=== PATIENT | female | born 2000 | race Caucasian/White ===

== ENCOUNTER 2021-01-04 14:17 | Inpatient (IN) | payer OTHER, SELFPAY ==
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
--- NOTE | 2021-01-04 14:15 | DI.RAD_ITS ---
Exam(s) XR KNEE RT 2V AP,LAT EXAM: XR KNEE RT 2V AP,LAT CLINICAL HISTORY: Trauma. TECHNIQUE: 2D digital imaging was performed. COMPARISON: No exams were available for comparison FINDINGS: Two portable AP and cross-table lateral views of the right knee reveal no evidence of fracture or obv ious joint effusion. Bone density is normal. No incidental osseous lesions IMPRESSION: DATA REPOSITORY: RADIATION DOSE DELIVERED:
[2021-01-04 14:20] VITALS: BP 135/66; PULSE 98; RESP 20; TEMP 37; O2SAT 100
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
[2021-01-04] MEDS: Normal Saline 1,000 ML 150 ML IV (14:52)
[2021-01-04] MEDS: Ondansetron 4 MG/2 ML VIAL IVP ×2 (14:54→22:46)
[2021-01-04] MEDS: MORPHine 10 MG/ML VIAL 4 MG IVP ×2 (14:55→17:31)
[2021-01-04 14:59] LABS: Abs Immature Grans 0.09 10^3/uL (0.0-0.06); Absolute Eosinophil Count 0.11 10^3/uL (0.0-0.7); Absolute Lymphocyte Count 3.07 10^3/uL (1.2-3.4); Absolute Monocyte Count 0.82 10^3/uL (0.1-0.8); Basophils % 0.4; Eosinophils % 0.7; HCT 42.3 % (36.0-46.0); HGB 14.1 g/dL (11.2-15.7); Immature Grans % 0.6; Lymphocytes % 19.5; MCHC 33.3 % (32.0-36.0); MCV 83.9 fL (80-95); Monocytes % 5.2; Neutrophils % 73.6; Nucleated RBC 0 %; Platelet Count 357 10^3/uL (130-400); RBC 5.04 10^6/uL (3.93-5.22); RDW-SD 36.5 fL; WBC 15.76 10^3/uL (4.4-10.8)
[2021-01-04] MEDS: Lidocaine/Epinephri/Tetracaine Topical Gel 3 ML TP (14:59)
[2021-01-04 15:02] LABS: Absolute Basophil Count 0.06 10^3/uL (0.0-0.2)
[2021-01-04 15:05] LABS: Lipase 73 U/L (73-393); Magnesium 1.7 mg/dL (1.8-2.4)
[2021-01-04 15:11] LABS: ALT 31 U/L (14-59); AST 15 U/L (15-37); Albumin 4.2 g/dL (3.4-5.0); Alkaline Phosphatase 85 U/L (46-116); Anion Gap 9.8 mmol/L (3-11); BUN 13 mg/dL (7-18); Bilirubin, Total 0.6 mg/dL (0.2-1.0); CO2 28.2 mmol/L (21.0-32.0); Calcium 9.1 mg/dL (8.5-10.1); Chloride 105 mmol/L (98-107); Glucose 177 mg/dL (74-106); Potassium 3.2 mmol/L (3.5-5.1); Sodium 143 mmol/L (136-145); Total Protein 7.8 g/dL (6.4-8.2); Troponin I < 0.05 ng/mL (<0.06)
[2021-01-04 15:15] LABS: HCG Qual (Serum) Negative
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
[2021-01-04] MEDS: Normal Saline - Diluent 50 ML VIAL IV (15:21)
[2021-01-04] MEDS: Omnipaque 350 MG/ML 100 ML BTL IJ (15:21)
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
[2021-01-04] MEDS: LORazepam 2 MG/ML VIAL 0.5 MG IVP (16:31)
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
[2021-01-04] MEDS: Ketorolac 15 MG/ML VIAL IVP ×2 (17:40→23:42)
[2021-01-04] MEDS: Acetaminophen 500 MG TAB 1000 MG PO ×2 (17:41→23:42)
[2021-01-04 17:46] LABS: Bilirubin Negative (Negative); Blood Negative (Negative); Clarity Sl Cloudy (Clear); Glucose Negative (Negative); Ketones Negative (Negative); Leukocyte Esterase Negative (Negative); Nitrite Negative (Negative); Urobilinogen 0.2 EU/dL (Up TO 0.2)
[2021-01-04 18:03] LABS: Source Nasal/Nares
[2021-01-04 18:30] VITALS: BP 126/73; PULSE 99; RESP 18; TEMP 37.1; O2SAT 99
[2021-01-04] MEDS: MORPHine 2 MG/ML SYR IVP ×2 (18:43→20:42)
[2021-01-04] MEDS: DEXTROSE 5%-0.45% SALINE 1,000 ML 100 ML IV (18:43)
[2021-01-04 18:53] LABS: COVID-19 PCR Negative (Negative)
[2021-01-04] MEDS: oxyCODONE 5 MG TAB PO (19:33)
[2021-01-04 19:45] VITALS: BP 137/82; PULSE 87; RESP 18; TEMP 37.2; O2SAT 100
[2021-01-04] MEDS: Normal Saline Flush 10 ML SYR IVP ×3 (20:42→23:43)
[2021-01-04] MEDS: Enoxaparin 40 MG/0.4 ML SYR SC (20:43)
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
[2021-01-04 21:03] VITALS: BP 137/82; PULSE 87; RESP 19; TEMP 37.2; O2SAT 100
[2021-01-04] MEDS: LORazepam 0.5 MG TAB PO (22:21)
[2021-01-04 22:45] VITALS: BP 118/77; PULSE 85; RESP 18; TEMP 36.5; O2SAT 98
[2021-01-05] VITALS (17 sets, daily range): BP systolic 94–138; BP diastolic 34–91; PULSE 59–86; RESP 12–22; TEMP 36.2–37.1; TEMPC 36.6; O2SAT 96–100; BMI 33.9
[2021-01-05] MEDS: MORPHine 2 MG/ML SYR IVP ×3 (00:58→04:36)
[2021-01-05] MEDS: Normal Saline Flush 10 ML SYR IVP ×5 (00:58→22:59)
[2021-01-05] MEDS: DEXTROSE 5%-0.45% SALINE 1,000 ML 100 ML IV ×3 (04:37→22:59)
[2021-01-05] MEDS: Ketorolac 15 MG/ML VIAL IVP ×3 (05:48→22:58)
[2021-01-05] MEDS: Acetaminophen 500 MG TAB 1000 MG PO ×2 (05:48→11:38)
[2021-01-05 07:05] LABS: Abs Immature Grans 0.02 10^3/uL (0.0-0.06); Absolute Basophil Count 0.04 10^3/uL (0.0-0.2); Absolute Eosinophil Count 0.05 10^3/uL (0.0-0.7); Absolute Lymphocyte Count 2.33 10^3/uL (1.2-3.4); Absolute Monocyte Count 0.77 10^3/uL (0.1-0.8); Basophils % 0.4; Eosinophils % 0.5; HCT 36.5 % (36.0-46.0); HGB 11.8 g/dL (11.2-15.7); Immature Grans % 0.2; Lymphocytes % 23.1; MCH 27.5 pg (27.0-33.0); MCHC 32.3 % (32.0-36.0); MCV 85.1 fL (80-95); MPV 10.7 fL (8.0-11.0); Monocytes % 7.6; Neutrophils % 68.2; Nucleated RBC 0 %; Platelet Count 258 10^3/uL (130-400); RBC 4.29 10^6/uL (3.93-5.22); RDW 12.1 % (11.7-14.6); RDW-SD 37.2 fL; WBC 10.07 10^3/uL (4.4-10.8)
[2021-01-05 07:12] LABS: Absolute Neutrophil Count 6.87 10^3/uL (1.2-6.7)
[2021-01-05 07:16] LABS: Anion Gap 7.3 mmol/L (3-11); BUN 9 mg/dL (7-18); CO2 28.7 mmol/L (21.0-32.0); CREATININE 0.8 mg/dL (0.55-1.02); Calcium 8.7 mg/dL (8.5-10.1); Chloride 105 mmol/L (98-107); Glucose 114 mg/dL (74-106); Magnesium 1.6 mg/dL (1.8-2.4); Potassium 3.7 mmol/L (3.5-5.1); Sodium 141 mmol/L (136-145)
[2021-01-05] MEDS: Bacitracin 1 PACKET TP (07:42)
[2021-01-05] MEDS: MORPHine 2 MG/ML SYR 4 MG IVP ×3 (07:42→12:35)
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
[2021-01-05] MEDS: oxyCODONE 5 MG TAB PO (09:50)
[2021-01-05] MEDS: MAGNESIUM SULFATE 1 GM/100 ML BAG IVPB (12:01)
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
[2021-01-05] MEDS: Ondansetron 4 MG/2 ML VIAL IVP ×2 (16:27→20:37)
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
[2021-01-05] MEDS: Lactated Ringers 1,000 ML 50 ML IV (17:39)
[2021-01-05] MEDS: Bupivacaine 0.25% Pres-Free 30 ML VIAL (18:12)
[2021-01-05] MEDS: Ketorolac 30 MG/ML VIAL (18:12)
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
--- NOTE | 2021-01-05 21:01 | W.ANESPOSTOP ---
Postoperative Evaluation Date, Time and Location Date Performed: 01/05/21 Time Performed: 21:01 Patient Location: PACU Vital Signs Most Recent Imported Vital Signs: Most Recent Vital Signs Temp Pulse Resp BP Pulse Ox 36.4 C L 65 13 97/41 L 97 01/05/21 20:49 01/05/21 20:49 01/05/21 20:49 01/05/21 20:49 01/05/21 20:49 Most Recent Manually Entered Vital Signs: Adult Blood Pressure: 127/73 Heart Rate: 62 Respirations: 12 Oxygen Saturation (%): 100 Temperature (C): 36.6 C Pain Score (0-10 Scale): 0 Pain Score Most Recent Pain Score: Most Recent Pain Score Pain Level [Right Lower 10 01/05/21 05:57 Lateral Leg] Pain Level [Left Tib/Fib(lower 10 01/04/21 14:26 leg)] Pain Level 0 01/05/21 20:49 Assessment Mental Status: Awake (Alert & Oriented to Patient Baseline) Airway and Respiratory Function: Patent airway with normal (patient baseline) respiratory exam Cardiovascular Function: Hemodynamically Stable Hydration Status: Adequately Hydrated Nausea & Vomiting: No Nausea or Vomiting Pain: Pt. Denies Any Pain Peripheral Nerve Block: Patient did not receive a nerve block
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
[2021-01-06] MEDS: Acetaminophen 500 MG TAB 1000 MG PO ×3 (00:11→13:23)
[2021-01-06] MEDS: ceFAZolin 1 GM/50 ML BAG IVPB ×3 (00:11→15:01)
[2021-01-06] MEDS: Ondansetron 4 MG/2 ML VIAL IVP (00:16)
[2021-01-06] MEDS: HYDROmorphone 2 MG/ML VIAL 0.5 MG IVP (00:16)
[2021-01-06] MEDS: Normal Saline Flush 10 ML SYR IVP ×4 (00:19→15:03)
[2021-01-06 00:27] VITALS: BP 115/74; PULSE 72; RESP 19; TEMP 36.9; O2SAT 99
[2021-01-06] MEDS: oxyCODONE 5 MG TAB PO ×3 (04:13→14:03)
[2021-01-06] MEDS: Ketorolac 15 MG/ML VIAL IVP ×2 (04:14→10:22)
[2021-01-06 04:21] VITALS: BP 111/63; PULSE 74; RESP 18; TEMP 37; O2SAT 98
--- NOTE | 2021-01-06 07:17 | PGE_ITS ---
Date of Service Date of service: 01/06/21 Time of Service: 07:17 Assessment and Plan Assessment and plan (1) Tibia/fibula fracture: Status: Acute Assessment and plan: Petey is a 20-year-old status post intervention nail fixation of a right tib-fib fracture. She is doing well. Her pain has improved. At this point, we will work with physical therapy to mobilize. I expect that she could be go home this afternoon as long as she is able to pass crutch mobilization expectations. Her pain has been managed on oral medications which we will continue on discharge. She will receive Lovenox while here in the hospital for her blood clot prevention but then transition to aspirin. Touchdown weightbearing right lower extremity with use of crutches or a walker. Qualifiers: Encounter type: initial encounter Fracture type: closed Laterality: right Qualified Code(s): S82.201A - Unspecified fracture of shaft of right tibia, initial encounter for closed fracture; S82.401A - Unspecified fracture of shaft of right fibula, initial encounter for closed fracture Subjective Subjective Interval history since last seen: Petey reports be doing better. She has had pain overnight but has been treated with oral medications. She has been able to move her own leg without significant increase in pain. She does find that rajan ons about her ankle and her foot seem to cause more pain than before but otherwise no acute concerns. She has been voiding spontaneously on her own. Exam Narrative Exam Narrative: Sitting up in the hospital bed. No acute distress. Alert on x3. Evaluation of her right lower extremity shows a splint in place. No significant drainage or discharge. She does have some swelling about the foot but is able to wiggle her toes minimally. No significant pain with passive range of motion. Sensation intact light touch of the deep and superficial peroneal nerve and tibial nerve. Objective Last Vital Signs Temp 37 C 01/06/21 04:21 Pulse 74 01/06/21 04:21 Resp 18 01/06/21 04:21 BP 111/63 01/06/21 04:21 Pulse Ox 98 01/06/21 04:21 Laboratory Results - last 24 hr 01/05/21 06:42 Sodium 141 Potassium 3.7 Chloride 105 Carbon Dioxide 28.7 Anion Gap 7.3 BUN 9 Creatinine 0.8 Estimated GFR/1.73 m2 >= 60.00 Glucose 114 H Calcium 8.7 Magnesium 1.6 L
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
[2021-01-06 07:23] LABS: Absolute Monocyte Count 0.56 10^3/uL (0.1-0.8); Basophils % 0.1; HCT 36.3 % (36.0-46.0); HGB 11.9 g/dL (11.2-15.7); Immature Grans % 0.7; Lymphocytes % 5.3; MCH 27.4 pg (27.0-33.0); MCHC 32.8 % (32.0-36.0); MCV 83.4 fL (80-95); MPV 11.2 fL (8.0-11.0); Monocytes % 3.7; Neutrophils % 90.2; Nucleated RBC 0 %; Platelet Count 268 10^3/uL (130-400); RBC 4.35 10^6/uL (3.93-5.22); RDW-SD 36.5 fL; WBC 15.07 10^3/uL (4.4-10.8)
[2021-01-06 07:25] LABS: Absolute Basophil Count 0.02 10^3/uL (0.0-0.2); Absolute Neutrophil Count 13.59 10^3/uL (1.2-6.7)
[2021-01-06] MEDS: Bacitracin 1 PACKET TP (07:52)
[2021-01-06] MEDS: Enoxaparin 40 MG/0.4 ML SYR SC (07:53)
[2021-01-06 08:50] VITALS: BP 123/77; PULSE 68; RESP 18; TEMP 36.3; O2SAT 100
[2021-01-06] MEDS: Docusate Sodium 100 MG CAP PO (08:50)
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
--- NOTE | 2021-01-06 15:22 | NUR.NOTE ---
Nursing Note:Patient stated 10/10 pain despite 10 mg oxycodone. Patient worried about developing blood clots and the pain in her ankle. Charge nurse made aware. Pulses present. Foot warm and patient is able to move all toes. Surgical PA made aware and came up to bedside. PA un-wrapped and rewrapped leg. No changes and is cleared to be discharged.
[2021-01-06 16:08] VITALS: BP 119/71; PULSE 71; RESP 16; TEMP 37.1; O2SAT 98
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
== END 2021-01-06 17:24 | disposition home or self-care (01) | DRG 494 ==
LOC: ER 17:03 → MS 01-05 07:20
PROVIDERS: Admitting Provider Surgery; Emergency Provider Registered Nurse Emergency; Visit Provider Student in an Organized Health Care Education/Training Program
PROC: 0QSG06Z Reposition Right Tibia with Intramedullary Internal Fixation Device, Open Approach (ICD-10-PCS; CPT 27759; principal; 2021-01-05 17:00)
DX: S82.201A Unspecified fracture of shaft of right tibia, initial encounter for closed fracture (principal); V89.2XXA Person injured in unspecified motor-vehicle accident, traffic, initial encounter; Z20.822 Contact with and (suspected) exposure to COVID-19; S01.81XA Laceration without foreign body of other part of head, initial encounter
CPT/HCPCS: 27759; 12011; 29515; 36415; 74177; 76000; 80048; 80053; 83690; 87635; 96361; 96374; 96375; 96376; 97116; 97161; 99285; J1650; 70450; 71046; 71260; 72125; 73560; 73590; 81003; 83735; 84484; 84703; 85025; J0690; J1100; J1885; J2001; J2060; J2250; J2270; J2405; J2704; J3010; J3475; J3490

== ENCOUNTER 2021-01-11 14:01 | Outpatient (REF) | payer MEDICAID, SELFPAY ==
[2021-01-11 17:17] LABS: Source Nasal/Nares
[2021-01-11 20:47] LABS: COVID-19 PCR Negative (Negative)
== END 2021-01-11 14:02 | disposition home or self-care (01) ==
LOC: LBO 14:01
PROVIDERS: PCP Family Medicine; Visit Provider Family Medicine
DX: Z20.822 Contact with and (suspected) exposure to COVID-19 (principal)
CPT/HCPCS: 87635

== ENCOUNTER 2021-01-21 14:16 | Outpatient (CLI) | payer MEDICAID, SELFPAY ==
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
== END 2021-01-21 14:17 | disposition home or self-care (01) ==
LOC: DIORS 14:16
PROVIDERS: PCP Family Medicine; Referring Provider Family Medicine; Visit Provider Student in an Organized Health Care Education/Training Program
DX: S82.201D Unspecified fracture of shaft of right tibia, subsequent encounter for closed fracture with routine healing (principal); S82.401D Unspecified fracture of shaft of right fibula, subsequent encounter for closed fracture with routine healing
CPT/HCPCS: 73590

== ENCOUNTER 2021-03-08 12:52 | Outpatient (CLI) | payer MEDICAID, SELFPAY ==
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
== END 2021-03-08 12:53 | disposition home or self-care (01) ==
LOC: DIORS 12:52
PROVIDERS: PCP Family Medicine; Referring Provider Family Medicine; Visit Provider Physician Assistant
DX: S82.291D Other fracture of shaft of right tibia, subsequent encounter for closed fracture with routine healing (principal); S82.491D Other fracture of shaft of right fibula, subsequent encounter for closed fracture with routine healing; X58.XXXA Exposure to other specified factors, initial encounter
CPT/HCPCS: 73590

== ENCOUNTER 2021-04-05 13:04 | Outpatient (CLI) | payer MEDICAID, SELFPAY ==
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
== END 2021-04-05 13:05 | disposition home or self-care (01) ==
LOC: DIORS 13:04
PROVIDERS: PCP Family Medicine; Referring Provider Family Medicine; Visit Provider Student in an Organized Health Care Education/Training Program
DX: S82.291D Other fracture of shaft of right tibia, subsequent encounter for closed fracture with routine healing (principal); S82.491D Other fracture of shaft of right fibula, subsequent encounter for closed fracture with routine healing; X58.XXXD Exposure to other specified factors, subsequent encounter
CPT/HCPCS: 73590

== ENCOUNTER 2021-05-17 11:21 | Outpatient (CLI) | payer MEDICAID, SELFPAY ==
--- NOTE | 2021-05-17 10:45 | DI.RAD_ITS ---
Exam(s) XR TIB/FIB RT EXAM: XR TIB/FIB RT INDICATION: follow up. COMPARISON: CR XR TIB/FIB RT from 04/05/2021 TECHNIQUE: 2D digital imaging was performed. FINDINGS: Intramedullary roxane is again noted through the tibia. There is been no change in fracture or hardware alignment. There has been a slight increase in fracture healing since the previous exam. No new ab normalities. DATA REPOSITORY: RADIATION DOSE DELIVERED:
== END 2021-05-17 11:22 | disposition home or self-care (01) ==
LOC: DIORS 11:21
PROVIDERS: PCP Family Medicine; Visit Provider Physician Assistant Surgical
DX: S82.291D Other fracture of shaft of right tibia, subsequent encounter for closed fracture with routine healing (principal); S82.491D Other fracture of shaft of right fibula, subsequent encounter for closed fracture with routine healing; X58.XXXD Exposure to other specified factors, subsequent encounter
CPT/HCPCS: 73590

== ENCOUNTER 2021-07-12 11:26 | Outpatient (CLI) | payer MEDICAID, SELFPAY ==
--- NOTE | 2021-07-12 10:30 | DI.RAD_ITS ---
Exam(s) XR TIB/FIB RT EXAM: XR TIB/FIB RT CLINICAL HISTORY: follow up. TECHNIQUE: 2D digital imaging was performed. Two views. COMPARISON: CR XR TIB/FIB RT from 05/17/2021 FINDINGS: BONES: There has been no change in the intramedullary roxane through the tibia. There is been no change in the alignment of the fractures of the distal 3rd of the tibia and fibula which shows some increas ed healing when compared with the previous. No acute fracture is present. No bony destructive lesion is seen. Visualized portion of knee and ankle joints are unremarkable. SOFT TISSUE: Normal. IMPRESSION: Healing fractures distal tibia and fibula. DATA REPOSITORY: RADIATION DOSE DELIVERED:
== END 2021-07-12 11:27 | disposition home or self-care (01) ==
LOC: DIORS 11:26
PROVIDERS: PCP Family Medicine; Referring Provider Family Medicine; Visit Provider Physician Assistant Surgical
DX: S82.291D Other fracture of shaft of right tibia, subsequent encounter for closed fracture with routine healing (principal); S82.491D Other fracture of shaft of right fibula, subsequent encounter for closed fracture with routine healing; X58.XXXD Exposure to other specified factors, subsequent encounter
CPT/HCPCS: 73590

== ENCOUNTER 2021-07-26 03:08 | Outpatient (CLI) | payer MEDICAID, SELFPAY ==
[2021-07-26 11:20] LABS: Source Nasal/Nares
[2021-07-26 19:41] LABS: COVID-19 PCR Negative (Negative)
== END 2021-07-26 03:09 | disposition home or self-care (01) ==
PROVIDERS: PCP Family Medicine; Visit Provider Student in an Organized Health Care Education/Training Program
DX: Z20.822 Contact with and (suspected) exposure to COVID-19 (principal); Z01.818 Encounter for other preprocedural examination
CPT/HCPCS: 87635

== ENCOUNTER 2021-07-28 09:47 | Day surgery (SDC) | payer MEDICAID, SELFPAY ==
[2021-07-28] VITALS (9 sets, daily range): BP systolic 101–137; BP diastolic 42–91; PULSE 59–73; RESP 14–27; TEMP 36.1–37; O2SAT 98–100; BMI 30.5
--- NOTE | 2021-07-28 07:54 | W.PM.DSUDISC ---
Discharge Plan Disposition Patient Disposition: HOME Condition: Good Discharge Details Reason For Visit: Painful orthopedic hardware Attending Provider: Nba Marshall Primary Care Provider: Gemini Byrd Home Meds and New Rx's Prescriptions: New hydrocodone-acetaminophen 5-325 mg tablet 1 tab PO Q6H PRN (Reason: severe pain) Qty: 4 0RF Rx Instructions: Take one tablet up to every 6 hours as needed for severe postoperative pain Continued diazepam 5 mg tablet 5 mg PO Q8H PRN PRN (Reason: muscle spasm and anxiety) Qty: 12 0RF acetaminophen 500 mg tablet 1,000 mg PO Q8H PRN (Reason: pain) Qty: 90 3RF ibuprofen 600 mg tablet 600 mg PO TID PRN (Reason: pain) Qty: 90 3RF Discharge Instructions Additional Instructions: Ankle Hardware Removal Discharge Instructions Activity: You may weight bear as tolerated. You should keep the leg elevated as much as possible. You may wiggle your toes and move your hip and knee. You may wear the fracture walking boot that you have at home but it's not necessary. However, you should utilize the crutches to take it easy for the first two weeks. Dressings: You should keep the initial dressing on for at least 3 days, although it can stay for up to 7 days. After 3 days, you may remove it and get it wet in the shower. You should keep it covered with a light gauze dressing or wrap or bandaid until follow-up. Medications: - You should take Tylenol and Ibuprofen around the clock for baseline pain. - You have been prescribed a stronger narcotic, Hydrocodone, for breakthrough pain. Follow-up: 2 weeks Referrals: Nba Marshall MD [ [facility] STAFF PHYSICIAN] - Activity:: Elevate Remove Dressings/Wound Care:: 72 hours Shower/Bathe:: 72 hours Diet:: As Tolerated Discharge Orders Discharge Orders: Discharge Order (Routine); Ordered 07/28/21 Ordered By: Jayde Pennington DS: Diagnosis Discharge Diagnosis (1) Painful orthopaedic hardware: Status: Acute
[2021-07-28] MEDS: Lactated Ringers 1,000 ML 80 ML IV (10:45)
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
--- NOTE | 2021-07-28 11:45 | DI.RAD_ITS ---
Exam(s) XR TIB/FIB RT EXAM: XR TIB/FIB RT CLINICAL HISTORY: HARDWARE RIGHT TIB/FIB TECHNIQUE: 2D and realtime digital imaging was performed. CONTRAST MATERIAL: Refer to procedure report. COMPARISON: CR XR TIB/FIB RT from 07/12/2021 FINDINGS: Fluoroscopy was provided for Dr. Marshall during the performance of a hardware removal. Please refe r to the procedure report for complete details. Ka,r=0.93 mGy IMPRESSION: RADIATION DOSE DELIVERED:
[2021-07-28] MEDS: ceFAZolin 2 GM/50 ML BAG IVPB (12:12)
--- NOTE | 2021-07-28 15:06 | W.ANESPOSTOP ---
Postoperative Evaluation Date, Time and Location Date Performed: 07/28/21 Time Performed: 14:15 Patient Location: Day Surgery Unit Vital Signs Most Recent Imported Vital Signs: Most Recent Vital Signs Temp Pulse Resp BP Pulse Ox 36.7 C 69 18 108/64 98 07/28/21 14:17 07/28/21 14:17 07/28/21 14:17 07/28/21 14:17 07/28/21 14:17 Pain Score Most Recent Pain Score: Most Recent Pain Score Pain Level 4 07/28/21 14:17 Assessment Mental Status: Awake (Alert & Oriented to Patient Baseline) Airway and Respiratory Function: Patent airway with normal (patient baseline) respiratory exam Cardiovascular Function: Hemodynamically Stable Hydration Status: Adequately Hydrated Nausea & Vomiting: No Nausea or Vomiting Pain: Pain is tolerable per patient Peripheral Nerve Block: Patient did not receive a nerve block
--- NOTE | 2021-07-28 21:35 | W.PM.OP ---
Date of service: 07/28/21 Time of Service: 12:45 Operative Note Operative Note DATE OF PROCEDURE: 07/28/21 PRE-OP DIAGNOSIS: Painful hardware - right leg PROCEDURE: Removal of deep hardware - right leg SURGEON: Nba Marshall ANESTHESIA TYPE: General:No Airway Refer to Anesthesia Record ESTIMATED BLOOD LOSS: 5 TOURNIQUET TIME: 0 Indications: Petey is a 21-year-old who suffered a tibial shaft fracture in January. She recovered from the tibia shaft fracture with adequate bony healing. However, she has complained about pain overlying the screw sites. Given the healing of the fracture I did offer screw removal. I discussed the risk of these procedure with her. I reviewed the risks to include bleeding, infection, pain, stiffness, refracture, damage to nerves and vessels. Despite these risk, she elected to proceed. Findings: 4 screws were removed without difficulty from the right leg. Procedure Description: Petey was seen in the preoperative holding area. Her identity was confirmed the correct side was identified and marked. The consent was reviewed the patient and signed. She was taken back to the operating room. Is placed in the supine position all bony prominences well-padded. A general, uninstrumented airway, anesthetic was administered. The right leg was prepped ChloraPrep and draped in a standard fashion. A timeout was performed for safe surgery. Prophylactic antibiotics in the form of cefazolin were administered. I injected the screw sites with a portion of the LUCÍA cocktail, which consisted of ropivacaine, epinephrine, clonidine, and ketorolac. I then utilized fluoroscopy to identify the screw sites and incised the skin. Blunt dissection was utilized using a snap down to bone and to the screwheads. I was able to remove the screw without difficulty. This was repeated for all 4 screws. Each 1 was removed without difficulty. The wounds were then irrigated. The remainder of the cocktail was injected. The skin was closed with a 4-0 nylon. The wounds were dressed with Mepilex silver dressing. At the end the case all counts were correct. She was transferred back to the PACU in a stable condition.
== END 2021-07-28 14:53 | disposition home or self-care (01) ==
PROVIDERS: PCP Family Medicine; Visit Provider Student in an Organized Health Care Education/Training Program
PROC: (CPT 20680; principal; 2021-07-28 13:00)
DX: T84.84XA Pain due to internal orthopedic prosthetic devices, implants and grafts, initial encounter (principal)
CPT/HCPCS: 20680; 81025; 73590; J0690; J1100; J1885; J2405

== ENCOUNTER 2021-10-11 21:53 | Emergency (ER) | payer MEDICAID, SELFPAY ==
[2021-10-11 22:25] VITALS: BP 114/59; PULSE 75; RESP 18; TEMP 36.7; O2SAT 98
--- NOTE | 2021-10-11 22:45 | DI.CT_ITS ---
Exam(s) CT LUMBAR SPINE RECONS CT ABDOMEN PELVIS WO EXAM: CT ABDOMEN PELVIS WO CLINICAL HISTORY: fell off horse, lower back pain. TECHNIQUE: Imaging Protocol: Axial computed tomography images with coronal and sagittal reformatted images were created and reviewed. Oral: no COMPARISON: CT CT CHEST/ABD/PEL W from 01/04/[address] LUMBAR SPINE RECONS from 10/11/2021 FINDINGS: ABDOMEN: Lung Bases: Normal where visualized. Liver: Normal density. No measurable mass. Gallbladder and biliary tract: No radiodense calculus or dilation. Bones: No lower rib or spine frac ture seen. Pancreas: Normal density, no abnormal calcifications or inflammatory process. Spleen: Normal. Kidneys: Normal size, contour and axis. No radiodense stones or obstructive uropathy. No masses seen. Adrenal glands: No masses seen. Lymph nodes: Within normal limits. Abdominal Aorta: Abdominal portion non-dilated. PELVIS: Bladder: Symmetric distention, no gross wall thickening. Bowel: No obstruction or bowel wall thickening. Peritoneal cavity: No ascites, collection or mesenteric inflammatory response. Reproductive organs: Within normal limits. Bones: No acute fractures seen in the visualized portions of the spine and pelvis. The SI joints ar e not widened. Disc heights are well maintained. IMPRESSION: No posttraumatic abnormality seen in the abdomen and pelvis. No evidence of spinal fracture. RADIATION DOSE DELIVERED: 894.64 mGy.cm Total DLP DATA REPOSITORY: All CT scans at this facility are submitted to the National Radiology Data Registry (NRDR) Dose Index Registry (DIR) with the [employer] (A[employer]). RADIATION OPTIMIZATION: All CT scans at this facility use at least one of these dose optimization te chniques: automated exposure control; mA and/or kV adjustment per patient size (includes targeted exa ms where dose is matched to clinical indication); or iterative reconstruction.
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
[2021-10-11] MEDS: Acetaminophen 500 MG TAB 1000 MG PO (23:11)
--- NOTE | 2021-10-11 23:55 | DI.VRAD_ITS ---
PROCEDURE INFORMATION: Exam: CT Abdomen And Pelvis Without Contrast Exam date and time: 10/11/2021 11:27 PM Age: 21 years old Clinical indication: Injury or trauma; Blunt; Lower; Injury date: 10/10/21; Injury details: Fell off horse, low back pain TECHNIQUE: Imaging protocol: Computed tomography of the abdomen and pelvis without contrast. Radiation optimization: All CT scans at this facility use at least one of these dose optimization techniques: automated exposure control; mA and/or kV adjustment per patient size (includes targeted exams where dose is matched to clinical indication); or iterative reconstruction. COMPARISON: CT CHEST/ABD/PEL W 01/04/2021 3:29 PM FINDINGS: Lungs: Visualized lung bases are clear. Heart: Heart size normal. Mediastinal space: The visualized distal esophagus is largely contracted without gross abnormality. Liver: Normal contour. No mass lesions. No intrahepatic biliary ductal dilatation. Gallbladder and bile ducts: Normal. No calcified stones. No ductal dilation. Pancreas: Normal. No inflammatory changes or ductal dilation. Spleen: Normal. No splenomegaly. Adrenal glands: Normal. No adrenal mass. Kidneys and ureters: No acute abnormalities. No hydronephrosis or hydroureter. No urinary tract stones are identified. Stomach and bowel: The stomach is largely contracted without gross abnormality. The small bowel is nondilated with no gross abnormality. No acute colonic abnormalities. Appendix: The appendix is normal in caliber and demonstrates no evidence of appendicitis. Intraperitoneal space: No free fluid or air. Vasculature: No acute process. No abdominal aortic aneurysm. Lymph nodes: No adenopathy. Urinary bladder: The urinary bladder is largely contracted without gross abnormality. Reproductive: Unremarkable as visualized. Bones/joints: No acute osseous abnormalities. A few small bone islands are noted around the hips and left sacral ala. Soft tissues: Unremarkable. IMPRESSION: No acute findings. Dictated and Authenticated by: Salvador Marshall MD. Ordering:ANGELLA Crowley MD
--- NOTE | 2021-10-11 23:59 | DI.VRAD_ITS ---
PROCEDURE INFORMATION: Exam: CT Lumbar Spine Without Contrast Exam date and time: 10/11/2021 11:27 PM Age: 21 years old Clinical indication: Injury or trauma; Blunt trauma (contusions or hematomas); Injury date: 10/10/21; Injury details: Fell off horse, back pain TECHNIQUE: Imaging protocol: Computed tomography of the lumbar spine without contrast. Radiation optimization: All CT scans at this facility use at least one of these dose optimization techniques: automated exposure control; mA and/or kV adjustment per patient size (includes targeted exams where dose is matched to clinical indication); or iterative reconstruction. COMPARISON: CT CHEST/ABD/PEL W 01/04/2021 3:29 PM FINDINGS: Bones/joints: Lumbosacral alignment is normal. No fractures or pars defects. No blastic or lytic lesions. Normal. T11-T12: Normal. T12-L1: Normal. L1-L2: Normal. L2-L3: Normal. L3-L4: Normal. L4-L5: Normal. L5-S1: No compressive soft disc extrusions or protrusions are identified by CT. Normal mild posterior annular prominence is present from L2-L3 through L5-S1, expected in an adolescent/young adult. Soft tissues: Visualized paraspinal soft tissues are normal. Other findings: No canal stenosis. No neuroforaminal stenosis. Visualized retroperitoneal structures are normal. IMPRESSION: No acute findings. Dictated and Authenticated by: Salvador Marshall MD. Ordering:ANGELLA Crowley MD
[2021-10-12 00:33] VITALS: BP 112/58; PULSE 78; RESP 16; O2SAT 99
== END 2021-10-12 00:34 | disposition home or self-care (01) ==
PROVIDERS: Emergency Provider Emergency Medicine; PCP Family Medicine
DX: S30.0XXA Contusion of lower back and pelvis, initial encounter (principal); V80.010A Animal-rider injured by fall from or being thrown from horse in noncollision accident, initial encounter; W22.8XXA Striking against or struck by other objects, initial encounter
CPT/HCPCS: 99284; 74176; 99282

== ENCOUNTER 2021-12-27 14:48 | Outpatient (CLI) | payer MEDICAID, SELFPAY ==
--- NOTE | 2021-12-27 14:15 | DI.RAD_ITS ---
Exam(s) XR TIB/FIB RT EXAM: XR TIB/FIB RT INDICATION: R tib fx. COMPARISON: CR XR TIB/FIB RT from 07/12/2021 TECHNIQUE: 2D digital imaging was performed. Two views. FINDINGS: Intramedullary roxane remains present through the tibia. The previously noted screws have been removed. There has been continued healing of the distal tibial and fibular fractures which are unchanged in position. DATA REPOSITORY: RADIATION DOSE DELIVERED:
== END 2021-12-27 14:49 | disposition home or self-care (01) ==
LOC: DIORS 14:49
PROVIDERS: PCP Family Medicine; Referring Provider Family Medicine; Visit Provider Physician Assistant
DX: S82.201D Unspecified fracture of shaft of right tibia, subsequent encounter for closed fracture with routine healing (principal); S82.401D Unspecified fracture of shaft of right fibula, subsequent encounter for closed fracture with routine healing; X58.XXXD Exposure to other specified factors, subsequent encounter
CPT/HCPCS: 73590

== ENCOUNTER 2022-05-30 11:20 | Outpatient (CLI) | payer MEDICAID, SELFPAY ==
--- NOTE | 2022-05-30 11:00 | DI.RAD_ITS ---
Exam(s) XR TIB/FIB RT EXAM: XR TIB/FIB RT INDICATION: continued pain about R leg. COMPARISON: CR XR TIB/FIB RT from 12/27/2021 TECHNIQUE: 2D digital imaging was performed. Two views. FINDINGS: An intramedullary roxane is again noted through the tibia. There is continued healing at the distal tib ial and fibular fractures. The alignment is unchanged. No new abnormalities. DATA REPOSITORY: RADIATION DOSE DELIVERED:
--- NOTE | 2022-05-30 11:14 | DI.RAD_ITS ---
Exam(s) XR KNEE RT 3V AP,LAT,MARIA FERNANDA EXAM: XR KNEE RT 3V AP,LAT,MARIA FERNANDA CLINICAL HISTORY: eval R knee pain, anterior/lateral. TECHNIQUE: 2D digital imaging was performed. Three views. COMPARISON: CR XR KNEE RT 2V AP,LAT from 01/04/2021 FINDINGS: BONES: No acute fracture is present. No bony destructive lesion is seen. Intramedullary roxane is note d through the tibia. JOINTS: The knee is normally aligned. No joint effusion is seen. The joint spaces are well maintaine d. SOFT TISSUE: Normal. IMPRESSION: Unremarkable radiographs of the right knee. DATA REPOSITORY: RADIATION DOSE DELIVERED:
== END 2022-05-30 11:21 | disposition home or self-care (01) ==
LOC: DIORS 11:20
PROVIDERS: PCP Family Medicine; Referring Provider Family Medicine; Visit Provider Student in an Organized Health Care Education/Training Program
DX: M25.561 Pain in right knee (principal); S82.291D Other fracture of shaft of right tibia, subsequent encounter for closed fracture with routine healing; S82.491D Other fracture of shaft of right fibula, subsequent encounter for closed fracture with routine healing; X58.XXXD Exposure to other specified factors, subsequent encounter; M79.661 Pain in right lower leg
CPT/HCPCS: 73562; 73590

== ENCOUNTER → 2022-11-01 01:05 | Outpatient (CLI) | payer MEDICAID, SELFPAY ==
--- NOTE | 2022-11-01 11:12 | DI.CT_ITS ---
Exam(s) CT LOWER EXTREMITY RT WO EXAM: CT LOWER EXTREMITY RT WO CLINICAL HISTORY: PAIN ?SYNOSTOSIS, TIB/FIB FX, NUMBNESS, S82.201A, S82.401A, R20.0. TECHNIQUE: Imaging Protocol: Axial computed tomography images with coronal and sagittal reformatted images were created and reviewed. COMPARISON: CR XR TIB/FIB RT from 05/30/2022 FINDINGS: Bones: There is an intramedullary nail again seen in the tibia. There is a healed distal tibial fra cture. There is also a healed distal fibular fracture. There is bony bridging located at the juncti on of the middle and distal thirds of the tibia and fibula. The bridging is incomplete suggesting a fiber osseous or cartilaginous connection. No cellulitic or osteomyelitic changes are identified. T he visualized portions of the knee and ankle are unremarkable. No lytic or sclerotic lesions are anish ntified. Soft Tissues: Normal. IMPRESSION: 1. 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 An MRI may be obtained for further evaluation if clinically indicated. 2. Healed distal tibial and fibular fractures. RADIATION DOSE DELIVERED: 619.62mGy.cm Total DLP 619.62mGy.cm Total DLP DATA REPOSITORY: All CT scans at this facility are submitted to the National Radiology Data Registry (NRDR) Dose Index Registry (DIR) with the [employer] ([employer]). RADIATION OPTIMIZATION: All CT scans at this facility use at least one of these dose optimization te chniques: automated exposure control; mA and/or kV adjustment per patient size (includes targeted exa ms where dose is matched to clinical indication); or iterative reconstruction.
== END ==
PROVIDERS: PCP Family Medicine; Visit Provider Student in an Organized Health Care Education/Training Program
DX: R20.0 Anesthesia of skin (principal)
CPT/HCPCS: 73700

== ENCOUNTER 2024-12-02 15:13 | Outpatient (CLI) | payer SELFPAY ==
--- NOTE | 2024-12-02 15:00 | DI.RAD_ITS ---
Exam(s) XR TIB/FIB RT EXAM: XR TIB/FIB RT CLINICAL HISTORY: F/U R TIB/FIB FX. TECHNIQUE: 2D digital imaging was performed. Two views. COMPARISON: CR XR TIB/FIB RT from 05/30/2022 FINDINGS: BONES: There has been continued healing of the previously noted fractures of the distal tibia and fibula. The intramedullary roxane remains in place. There are no abnormal surrounding lucencies. No acute fracture is present. No bony destructive lesion is seen. Visualized portion of knee and ankle joints are unremarkable. SOFT TISSUE: Normal. IMPRESSION: Stable fracture and hardware alignment. Continued fracture healing. DATA REPOSITORY: RADIATION DOSE DELIVERED:
== END 2024-12-02 15:14 | disposition home or self-care (01) ==
LOC: DIORS 15:13
PROVIDERS: PCP Family Medicine; Visit Provider Student in an Organized Health Care Education/Training Program
DX: R20.0 Anesthesia of skin (principal); S82.201A Unspecified fracture of shaft of right tibia, initial encounter for closed fracture; S82.401A Unspecified fracture of shaft of right fibula, initial encounter for closed fracture
CPT/HCPCS: 73590